=== PATIENT | male | born 1945 | race Caucasian/White ===

== ENCOUNTER 2017-01-28 15:27 | Emergency (ER) | payer MEDICARE ==
[2017-01-28] MEDS ORDERED: NS 0.9% 1000 ML* 1,000 ML IV ONE (19:24)
[2017-01-28 20:01] LABS: Hematocrit 34 % (42-52); Hemoglobin 11.6 g/dl (14.0-18.0); Mean Corpuscular HGB Conc 34 g/dl (31-36); Mean Corpuscular Hemoglobin 31 pg (27-31); Mean Corpuscular Volume 90 fL (80-94); Mean Platelet Volume 7 um3 (7.4-10.4); Red Blood Count 3.81 10^6/ul (4.0-5.4); Red Cell Distribution Width 14 % (10.5-15); White Blood Count 9.7 10^3/ul (3.5-10.8)
[2017-01-28 20:09] LABS: Urine Bilirubin Negative (Negative); Urine Glucose Negative (Negative); Urine Nitrite Negative (Negative)
--- NOTE | 2017-01-28 20:14 | RAD ---
Indication: Epigastric pain. 2 views of the chest including dual energy PA views demonstrate no mediastinal shift. Heart is of normal size and configuration. Lung banuelos are clear. IMPRESSION: No active cardiopulmonary disease is noted.
[2017-01-28 20:18] LABS: Troponin I 0.01 ng/mL (<0.04)
[2017-01-28 20:22] LABS: Albumin 3.4 g/dL (3.2-5.2); BUN/Creatinine Ratio 11.9 (8-20); Calcium 8.9 mg/dL (8.6-10.3); EGFR African American 93.9 (>60); Globulin 3.6 g/dL (2-4); Potassium 3.7 mmol/L (3.5-5.0); Total Bilirubin 0.5 mg/dL (0.2-1.0)
[2017-01-28] MEDS ORDERED: Iohexol 300* (CONTRAST) 10 ML SDV IV ONE (21:40)
[2017-01-28 23:27] VITALS: BP 134/84
--- NOTE | 2017-01-29 00:45 | ED ---
Tunde Ball Rebecca, scribed for Ridge Soriano on 01/28/17 at 1931 . Abdominal Pain/Male - HPI Summary HPI Summary: Pt is a 71 y/o M who presents to ED c/o abdominal bloating and constipation. Pt reports bloating to be from the epigastric region down to the umbilicus and is described as "kind of solid." Sx were unchanged by Lois Lax and slightly alleviated by 4 doses of Puja Magnesia after which he released "liquid" with "tiny little marbles" in it. Denies N/V. Reports recent "virus" 10 days ago that affected the "small intestine I guess" and was evaluated by his PCP which showed slightly reduced liver function. PMHx back problems - takes Hydrocodone which he last took 1 week ago and that he never takes 2 days in a row. - History of Current Complaint Chief Complaint: EDGeneral Stated Complaint: STOMACH BULGE Time Seen by Provider: 01/28/17 19:12 Hx Obtained From: Patient Onset/Duration: Still Present Severity Currently: Mild Pain Intensity: 2 Pain Scale Used: 0-10 Numeric Location: Epigastric, Umbilical Character: Other: - Bloating Alleviating Factor(s): Other: - Slightly by milk magnesia Associated Signs And Symptoms: Positive: Constipation. Negative: Vomiting, Diarrhea - Allergies/Home Medications Allergies/Adverse Reactions: Allergies Allergy/AdvReac Type Severity Reaction Status Date / Time No Known Allergies Allergy Verified 01/28/17 15:32 PMH/Surg Hx/FS Hx/Imm Hx Endocrine/Hematology History: Denies: Hx Diabetes, Hx Thyroid Disease Cardiovascular History: Reports: Hx Hypertension Denies: Hx Pacemaker/ICD Respiratory History: Denies: Hx Asthma, Hx Chronic Obstructive Pulmonary Disease (COPD) GI History: Reports: Hx Gastroesophageal Reflux Disease - ON MEDICATION FOR, Hx Ulcer - negative h pylori History: Reports: Other Problems/Disorders - prostate cancer; erectile dysfunction Musculoskeletal History: Reports: Hx Arthritis - LOWER BACK, neck, Hx Back Problems Sensory History: Reports: Hx Cataracts - BILATERAL, Hx Contacts or Glasses - GLASSES Denies: Hx Hearing Aid Opthamlomology History: Reports: Hx Cataracts - BILATERAL, Hx Contacts or Glasses - GLASSES Neurological History: Reports: Other Neuro Impairments/Disorders - drop foot Psychiatric History: Reports: Hx Anxiety - ON MEDICATION FOR, Hx Depression - ON MEDICATION FOR Denies: Hx Panic Disorder - Cancer History Cancer Type, Location and Year: prostates cancer w/ prostatectomy Hx Chemotherapy: No Hx Radiation Therapy: No - Surgical History Surgery Procedure, Year, and Place: PROSTECTOMY - DX W/ EARLY PROSTATE CA- 2001. TONSILECTOMY -age 6 Hx Anesthesia Reactions: No Infectious Disease History: Yes Infectious Disease History: Reports: Hx of Known/Suspected MRSA - 2010 - thinks on hand Denies: Hx Hepatitis, Hx Human Immunodeficiency Virus (HIV), Traveled Outside the [place] in Last 30 Days - Family History Known Family History: Positive: Other - Glaucoma (father) - Social History Alcohol Use: None Substance Use Type: Reports: Marijuana Substance Use Comment - Amount & Last Used: MARIJUANA- LAST USED 1-2 MONTHS AGO Smoking Status (MU): Former Smoker Amount Used/How Often: <1 PPD X OFF AND ON 10 YEARS Have You Smoked in the Last Year: No Review of Systems Negative: Fever Positive: Other - Abdominal bloating, constipation. Negative: Vomiting, Nausea All Other Systems Reviewed And Are Negative: Yes Physical Exam - Summary Physical Exam Summary: Appearance: Well appearing, no pain distress Skin: warm, dry, reflects adequate perfusion Head/face: normal Eyes: EOMI, ZACKERY ENT: normal Neck: supple, nontender Respiratory: CTA, breath sounds present Cardiovascular: RRR, pulses symmetrical Abdomen: mild tenderness in the epigastric area, soft Bowel: present Musculoskeletal: normal, strength/ROM intact Neuro: normal, sensory motor intact, A&Ox3 Triage Information Reviewed: Yes Vital Signs On Initial Exam: Initial Vitals Temp Pulse Resp BP Pulse Ox 97.8 F 75 16 125/82 96 01/28/17 15:32 01/28/17 15:32 01/28/17 15:32 01/28/17 15:32 01/28/17 15:32 Vital Signs Reviewed: Yes - Abdirahman Coma Scale Coma Scale Total: 15 Diagnostics - Vital Signs Vital Signs Temp Pulse Resp BP Pulse Ox 01/28/17 18:32 67 96 01/28/17 18:30 113/93 01/28/17 17:43 98.2 F 73 16 135/82 96 01/28/17 15:32 97.8 F 75 16 125/82 96 - Laboratory Result Diagrams: 01/28/17 19:50 01/28/17 19:50 Lab Statement: Any lab studies that have been ordered have been reviewed, and results considered in the medical decision making process. - Radiology CXR Xray Interpretation: No Acute Changes - No active caardiopulmonary disease is noted. ED physician reviewed this radiology report and agrees. Radiology Interpretation Completed By: Radiologist - CT CT Abd/Pel CT Interpretation Completed By: Radiologist - There are atelectatis changes at the lung bases with trace right pleural effusion or pleural thickening. The spleen is enlarged measuring 16 cm in greatets transverse dimension. There is bilateral peinephric stranding, possibly chronic changes. Otherwise no CT evidence of acute renal patholoy. The upper abdominal visceral oragns are otherwise unremarkable. There are enlarged periportal and pericaval lymph nodes measuring up to 1.6 cm in short axis which are nonspecific, possibly reactive. There is no bowel obstruction or distention. The appendix and teminal ileum are unremarkable. Few sigmoid diverticula without evidence of acute diverticulitis. The prostate is surgically absent. No intra-abdominal free air, free fluid or loculated collections. ED physician reviewed this radiology report and agrees. - EKG 2051 Cardiac Rate: NL - 61 bpm EKG Rhythm: Sinus Rhythm EKG Interpretation: No acute changes Re-Evaluation - Re-Evaluation First Eval Re-Evaluation Time: 23:17 Comment: Discussed CT results with the pt. Abdominal Pain Fem Course/Dx - Course Assessment/Plan: Pt is a 71 y/o M who presents to ED c/o abdominal bloating and constipation. Pt reports bloating to be from the epigastric region down to the umbilicus and is described as "kind of solid." Sx were unchanged by Lois Lax and slightly alleviated by 4 doses of Puja Magnesia after which he released "liquid" with "tiny little marbles" in it. Denies N/V. Reports recent "virus" 10 days ago that affected the "small intestine I guess" and was evaluated by his PCP which showed slightly reduced liver function. PMHx back problems - takes Hydrocodone which he last took 1 week ago and that he never takes 2 days in a row. CT Abd/Pel and CXR reveal no acute findings. EKG is sinus rhythm with no acute changes. In the ED course, the pt received fluids. Blood tests and UA were done. Pt will be D/C to home with Dx of abdominal pain, nonspecific and a follow up with his PCP and GI. He understands and agrees. Elevated BP noted and advised to f/u with PCP. - Diagnoses Provider Diagnoses: Pain, abdominal, nonspecific Discharge - Discharge Plan Condition: Stable Disposition: HOME Patient Education Materials: Acute Abdominal Pain (ED) Referrals: Gloria Lott MD [Primary Care Provider] - 3 Days Fran Schwarz MD [Medical Doctor] - The documentation as recorded by the Tunde ayala Rebecca accurately reflects the service I personally performed and the decisions made by Bo chowdhury Emmanuel.
--- NOTE | 2017-01-29 07:55 | RAD ---
INDICATION: Abdominal pain, diverticulitis. COMPARISON: There are no prior studies available for comparison. TECHNIQUE: A CT scan of the abdomen and pelvis was performed with intravenous and oral contrast following intravenous injection of 80 ml of Omnipaque 300 nonionic contrast. Contiguous axial sections were obtained from the lung bases through the symphysis pubis. Images were reconstructed in the coronal and sagittal planes. FINDINGS: There are small dependent bilateral lower lobe infiltrates suggestive of atelectasis and a trace right pleural effusion. The liver is within normal limits in size without significant focal abnormality. No calcified gallstones are seen. The spleen is enlarged measuring up to 15.8 cm in length. The pancreas appears to be within normal limits. The adrenal glands and kidneys are normal in size. No hydronephrosis is present. There is a small subcentimeter cyst present in the midportion of the right kidney. There is bilateral symmetric perinephric stranding possibly chronic. The patient is status post prostatectomy. The aorta is slightly tortuous with moderate calcific plaque. No aneurysm is present. There is a slightly prominent anterior diaphragmatic lymph node measuring up to 1 cm in transverse dimension. There are enlarged periportal lymph nodes measuring up to 1.6 cm in transverse dimension. No significant enlarged retroperitoneal abdominal or pelvic lymph nodes are seen. The stomach, small and large bowel appear nondistended. The appendix is within normal limits. There is no evidence for diverticulitis or colitis. No free intraperitoneal air or fluid is seen. There is mild sclerosis in the medial right iliac bone likely incidental. No other focal osseous abnormalities are seen. IMPRESSION: 1. TRACE RIGHT PLEURAL EFFUSION AND MILD DEPENDENT LOWER LOBE INFILTRATES MOST CONSISTENT WITH ATELECTASIS. 2. ENLARGED PERIPORTAL AND ANTERIOR DIAPHRAGMATIC LYMPH NODES. 3. SPLENOMEGALY. 4. STATUS POST PROSTATECTOMY.
== END 2017-01-28 23:29 | disposition home or self-care (01) ==
LOC: ED 15:27
DX: R10.84 Generalized abdominal pain (principal); R14.0 Abdominal distension (gaseous); K59.00 Constipation, unspecified; J90 Pleural effusion, not elsewhere classified; R16.1 Splenomegaly, not elsewhere classified; I10 Essential (primary) hypertension; K21.9 Gastro-esophageal reflux disease without esophagitis; F41.9 Anxiety disorder, unspecified; F32.9 Major depressive disorder, single episode, unspecified; Z85.46 Personal history of malignant neoplasm of prostate; Z90.79 Acquired absence of other genital organ(s); Z86.14 Personal history of Methicillin resistant Staphylococcus aureus infection; Z87.891 Personal history of nicotine dependence
CPT/HCPCS: 36415; 71020; 74177; 80053; 81003; 83605; 83690; 84484; 85025; 85610; 85730; 93005; 96360; 99283

== ENCOUNTER 2018-08-22 13:18 | Emergency (ER) | payer MEDICARE ==
[2018-08-22 13:58] VITALS: BP 132/91
--- NOTE | 2018-08-22 14:39 | UC ---
Upper Extremity HPI - HPI Summary HPI Summary: Patient is a 73 year old gentleman, who present today to the urgent care with right shoulder pain for past 3 weeks He reports that he slipped on the ice and fell on his right shoulder about 3 weeks ago, landing on his right shoulder. He has prior history of neck pain but denies any worsening. Denies any cervical radicular symptoms, numbness or tingling pain is mainly in the anterolateral aspect of the right shoulder, worse with activity. There is nocturnal symptoms. He has history of low back pain for which he has hydrocodone and is taking for his shoulder pain as well. Denies any chest pain or shortness of breath . Denies any abdominal pain , nausea or vomiting , diarrhea or constipation. - History of Current Complaint Chief Complaint: UCUpperExtremity Stated Complaint: SHOULDER INJURY Time Seen by Provider: 08/22/18 14:01 Hx Obtained From: Patient Pain Intensity: 4 - Allergies/Home Medications Allergies/Adverse Reactions: Allergies Allergy/AdvReac Type Severity Reaction Status Date / Time No Known Allergies Allergy Verified 08/22/18 13:57 PMH/Surg Hx/FS Hx/Imm Hx - Additional Past Medical History Additional PMH: bilateral foot drop Lumbar osteoarthritis Depression Peptic ulcer disease Hypertension Prostate cancer status post prostatectomy Previously Healthy: Yes - Surgical History Surgical History: Yes Surgery Procedure, Year, and Place: PROSTECTOMY - DX W/ EARLY PROSTATE CA- 2001. TONSILECTOMY -age 6 - Family History Known Family History: Positive: Other - Glaucoma (father) - Social History Alcohol Use: None Substance Use Type: Marijuana Substance Use Comment - Amount & Last Used: daily Smoking Status (MU): Former Smoker Amount Used/How Often: <1 PPD X OFF AND ON 10 YEARS Have You Smoked in the Last Year: No When Did the Patient Quit Smoking/Using Tobacco: 1979 Review of Systems All Other Systems Reviewed And Are Negative: Yes Constitutional: Positive: Negative Skin: Positive: Negative Eyes: Positive: Negative ENT: Positive: Negative Respiratory: Positive: Negative Cardiovascular: Positive: Negative Gastrointestinal: Positive: Negative Genitourinary: Positive: Negative Motor: Positive: Negative Neurovascular: Positive: Negative Musculoskeletal: Positive: Arthralgia - right shoulder, Other: - full range of motion, painful Neurological: Positive: Negative Psychological: Positive: Negative Is Patient Immunocompromised?: No Physical Exam - Summary Physical Exam Summary: Physical Exam: Const: Appears well. No signs of apparent distress present. Alert and oriented x 3. Musculo: Walks with a normal gait. Head/Face: Atraumatic, normocephalic on inspection. Eyes: EOMI and PERRLA in both eyes. Conjunctivae clear. ENT: Hearing normal, Respiratory: Respirations are unlabored. CVS: Regular rate and Rhythm, S1S2 normal , no murmurs identified. Extremities: Peripheral circulation is grossly normal. Pulses 2+ Abdomen : Soft non tender Skin: No lesions or rash located on the upper extremities or on the lower extremities. Neuro: Cranial nerves II to XII intact, motor and sensory intact. DTR Intact bilaterally. Mood is normal. Affect is normal. Right Shoulder: Inspection and Palpation: No visible deformities noted. this tenderness to palpation at the greater tuberosity ROM:Full range of motion , painful with abduction and forward flexion Strength: supraspinatus 5/5, Infraspinatus 5/5, subscapularis 5/5, External rotation 5/5. Tone: Normal muscle tone of the shoulder. Special tests: Empty can test negative, Neer sign and Morse test negative,, lift off test negative, bear hug test negative. Albin's test negative. Normal distal sensation and pulses. Triage Information Reviewed: Yes Vital Signs: Initial Vital Signs Temp 99.6 F 08/22/18 13:53 Pulse 102 08/22/18 13:53 Resp 18 08/22/18 13:53 BP 132/91 08/22/18 13:53 Pulse Ox 97 08/22/18 13:53 Vital Signs Reviewed: Yes Diagnostics - Radiology No standard instances Radiology Interpretation Completed By: Radiologist - x-ray of the right shoulder :4 views of the right shoulder demonstrates AC joint arthritis. No fracture is noted. Glenohumeral joint is unremarkable. IMPRESSION: Unremarkable shoulder. Upper Extremity Course/Dx - Course Course Of Treatment: During the visit today, we obtained x-rays of the right shoulder which demonstrated before meals joint osteoarthritis, final read:4 views of the right shoulder demonstrates AC joint arthritis. No fracture is noted. Glenohumeral joint is unremarkable.IMPRESSION: Unremarkable shoulder. symptoms consistent with rotator cuff strain. rotator cuff strength is intact on exam. I discussed with him about the option of starting physical therapy but he did not want any prescription today and was discussed with his primary care doctor about it. he has recently completed physical therapy for his left shoulder and plans to do the same exercises for his right side. Plan to refer him to orthopedics for further evaluation. he has hydrocodone for his back pain which she is taking for his pain relief. Patient expressed understanding . - Differential Dx/Diagnosis Provider Diagnosis: Strain of muscle(s) and tendon(s) of the rotator cuff of right shoulder, initial encounter Discharge - Sign-Out/Discharge Documenting (check all that apply): Patient Departure All imaging exams completed and their final reports reviewed: Yes - Discharge Plan Condition: Stable Disposition: HOME Patient Education Materials: Rotator Cuff Injury (ED), Shoulder Sprain (ED), Exercises for Internal and External Shoulder Rotation (ED), Exercises for Shoulder Abduction and Adduction (ED) Referrals: Gloria Lott MD [Primary Care Provider] - 1 Week Manju Hernandez MD [Medical Doctor] - 1 Week Additional Instructions: pain control as needed. Gentle range of motion and strengthening exercises Follow up with your primary care doctor in 1 week. Follow up with orthopedics within 1 week. Patients blood pressure slightly high in Urgent care today(prehypertensive range) , plan follow up with PCP for better control Return to Urgent care / ER if symptoms get worse. - Billing Disposition and Condition Condition: STABLE Disposition: Home
== END 2018-08-22 15:04 | disposition home or self-care (01) ==
LOC: UCEAST 13:18
DX: S46.011A Strain of muscle(s) and tendon(s) of the rotator cuff of right shoulder, initial encounter (principal); I10 Essential (primary) hypertension; M47.896 Other spondylosis, lumbar region; Z87.891 Personal history of nicotine dependence; W00.0XXA Fall on same level due to ice and snow, initial encounter; Y92.9 Unspecified place or not applicable
CPT/HCPCS: 99211; G0463

== ENCOUNTER 2021-08-12 10:29 | Inpatient (IN) ==
[2021-08-12 11:06] LABS: ABS Eosinophils 0.1 10^3/ul (0-0.6); ABS Monocytes 0.6 10^3/ul (0-0.8); ABS Neutrophils 6.8 10^3/ul (1.5-7.7); Eosinophil % 1.3 %; Hematocrit 41 % (42-52); Hemoglobin 14.1 g/dL (14.0-18.0); Lymphocyte % 11.4 %; Mean Corpuscular HGB Conc 34 g/dL (31-36); Mean Corpuscular Hemoglobin 32 pg (27-31); Mean Corpuscular Volume 93 fL (80-94); Mean Platelet Volume 8.3 fL (7.4-10.4); Platelet Count 200 10^3/uL (150-450); Red Blood Count 4.43 10^6 /uL (4.18-5.48); Red Cell Distribution Width 13 % (10-15); White Blood Count 8.5 10^3/uL (3.5-10.8)
[2021-08-12 11:16] LABS: INR 0.98 (0.86-1.15)
[2021-08-12 11:52] LABS: Albumin 4.2 g/dL (3.2-5.2); Albumin/Globulin Ratio 1.4 (1-3); Calcium 9.6 mg/dL (8.6-10.3); Globulin 2.9 g/dL (2-4); Potassium 4.4 mmol/L (3.5-5.0); Total Bilirubin 0.4 mg/dL (0.2-1.0); Total Protein 7.1 g/dL (6.4-8.9); eGFR CKD-EPI 65.7 (>60)
[2021-08-12 12:21] LABS: High Sensitivity Troponin 1 Hr 1555 pg/mL (<20)
[2021-08-12] MEDS ORDERED: Al Hydrox/Mg Hydrox/Simet LIQ 30 ML UDC PO PRN (12:29)
[2021-08-12] MEDS ORDERED: Ondansetron 4 mg VIAL 2 MG/ML 2 ml VIAL IV PRN (12:29)
[2021-08-12] MEDS ORDERED: NS 0.9% 1000 ml BAG 1,000 ML IV SCH ×2 (12:30→13:30)
[2021-08-12] MEDS ORDERED: Heparin DRIP 25,000 UNITS BAG 25,000 UNITS/500 ML BAG IV SCH (12:45)
[2021-08-12] MEDS ORDERED: Heparin 5000 UNITS/ML 1 mL VIAL IV SCH (13:00)
[2021-08-12 13:24] LABS: Magnesium 1.9 mg/dL (1.9-2.7)
[2021-08-12] MEDS ORDERED: VERAPAMIL 2.5 MG/ML 2 ML VIAL ** 5 mg/2 ml ONE (14:29)
[2021-08-12] MEDS ORDERED: Midazolam 5 mg/5 ml VIAL 1 mg/ml 5 ml VIAL (5 mg) ONE ×2 (14:29→15:04)
[2021-08-12] MEDS ORDERED: fentaNYL 100 mcg/2 ml 50 MCG/ML VIAL ONE (14:29)
[2021-08-12] MEDS ORDERED: Heparin 1,000 UNIT/ML 10 ml (10,000 UNITS) CATHLAB/DIALYSIS ONE (14:29)
[2021-08-12] MEDS ORDERED: Heparin 2 UNITS/ML 1000 mls 2,000 ML IV ONE (14:30)
[2021-08-12] MEDS ORDERED: Iohexol 350 (CONTRAST) 200 ML MDV IV ONE (14:30)
[2021-08-12] MEDS ORDERED: Lidocaine 1% MPF 5 ML VIAL ONE (14:31)
[2021-08-12] MEDS ORDERED: nitroGLYCERIN DRIP (PHA MIX) 25,000 MCG/250 ML BAG ONE (14:34)
[2021-08-12 21:10] VITALS: BP 117/85
[2021-08-13] MEDS ORDERED: Cholecalciferol (VIT D3) 1,000 unit TAB PO SCH (09:00)
== END 2021-08-12 20:15 | disposition short-term general hospital (02) | DRG 282 ==
LOC: ED 10:29 → EDHOLD 12:36 → ICU 16:49
PROVIDERS: ADMIT Pediatrics; ATTEND Pediatrics